=== PATIENT | male | born 1960 | race Caucasian/White ===

== ENCOUNTER 2018-05-31 06:03 | Day surgery (SDC) | payer MEDICAID ==
[~2018-05-31] VITALS: Ht 182.9 cm; Wt 57.2 kg
[2018-05-31 06:53] VITALS: BP 148/98
[2018-05-31] MEDS ORDERED: pepcid PO (06:53)
[2018-05-31] MEDS ORDERED: LACTATED RINGERS 1,000 ML IV SCH (07:07)
[2018-05-31] MEDS ORDERED: FENTANYL PF 250 MCG/5ML ONE (07:08)
[2018-05-31] MEDS ORDERED: MIDAZOLAM 1 MG/ML, 2ML ONE (07:08)
[2018-05-31] MEDS ORDERED: PROPOFOL 10 MG/ML, 20ML ONE (07:45)
[2018-05-31] MEDS ORDERED: SUCCINYLCHOLINE 20 MG/ML, 10ML ONE (07:45)
[2018-05-31] MEDS ORDERED: hydrALAzine 20 MG/ML, 1ML IV PRN (08:30)
[2018-05-31] MEDS ORDERED: MEPERIDINE/PF 25MG/0.5ML IVPush PRN (08:30)
[2018-05-31] MEDS ORDERED: HYDROmorphone 1 MG/ML, 1ML IV PRN (08:30)
[2018-05-31] MEDS ORDERED: LABETALOL 5MG/ML, 20ML IV PRN (08:30)
[2018-05-31] MEDS ORDERED: KETOROLAC 30 MG/1 ML IV PRN (08:30)
[2018-05-31] MEDS ORDERED: FENTANYL PF 100 MCG/2ML IV PRN (08:30)
[2018-05-31] MEDS ORDERED: ALBUTEROL SULFATE 2.5 MG/3 ML NPPB PRN (08:30)
[2018-05-31] MEDS ORDERED: ONDANSETRON 2MG/ML, 2ML IVPush PRN (08:30)
[2018-05-31] MEDS ORDERED: METOCLOPRAMIDE 5 MG/ML, 2ML IV PRN (08:30)
[2018-05-31] MEDS ORDERED: OXYcodone 5 MG/5 ML ORAL.SOL UDC PO PRN (08:30)
[2018-05-31] MEDS ORDERED: PROMETHAZINE 25 MG/ML, 1ML IV PRN (08:30)
== END 2018-05-31 09:40 | disposition home or self-care (01) ==
LOC: OUT 06:03
PROVIDERS: ATTEND Internal Medicine Geriatric Medicine
DX: C15.9 Malignant neoplasm of esophagus, unspecified (principal); K22.2 Esophageal obstruction; Z72.0 Tobacco use
CPT/HCPCS: 43231; J0330; J2250; J2704; J3010; J7120